=== PATIENT | female | born 1985 | race Caucasian/White ===

== ENCOUNTER → 2019-07-12 08:53 | Outpatient (BNVA) | payer SELFPAY | PROVIDERS: PCP Nurse Practitioner Family; Referring Provider Nurse Practitioner Family; Visit Provider Anesthesiology Pain Medicine | DX: M47.816 Spondylosis without myelopathy or radiculopathy, lumbar region (principal); M54.9 Dorsalgia, unspecified; M25.551 Pain in right hip; M25.552 Pain in left hip; M62.830 Muscle spasm of back | CPT/HCPCS: 99204 ==

== ENCOUNTER 2019-07-17 08:32 | Outpatient (RCR) | payer SELFPAY | END 2019-07-29 23:59 | disposition home or self-care (01) | LOC: SPT 08:32 | PROVIDERS: PCP Nurse Practitioner Family; Referring Provider Nurse Practitioner Family; Visit Provider Nurse Practitioner Family | DX: G89.29 Other chronic pain (principal); M54.9 Dorsalgia, unspecified | CPT/HCPCS: 97110; 97161; G0283 ==

== ENCOUNTER 2019-07-30 06:00 | Outpatient (RCR) | payer SELFPAY | END 2019-08-28 23:59 | disposition home or self-care (01) | LOC: SPT 06:00 | PROVIDERS: PCP Nurse Practitioner Family; Referring Provider Nurse Practitioner Family; Visit Provider Nurse Practitioner Family | DX: G89.29 Other chronic pain (principal); M54.9 Dorsalgia, unspecified | CPT/HCPCS: 97110 ==

== ENCOUNTER → 2019-08-02 10:47 | Outpatient (BNVA) | payer SELFPAY | PROVIDERS: PCP Nurse Practitioner Family; Referring Provider Nurse Practitioner Family; Visit Provider Specialist | DX: G04.90 Encephalitis and encephalomyelitis, unspecified (principal); R41.3 Other amnesia | CPT/HCPCS: 99205 ==

== ENCOUNTER → 2019-08-09 10:50 | Outpatient (BNVA) | payer SELFPAY | PROVIDERS: PCP Nurse Practitioner Family; Visit Provider Anesthesiology Pain Medicine | DX: M47.816 Spondylosis without myelopathy or radiculopathy, lumbar region (principal); M54.9 Dorsalgia, unspecified; M62.830 Muscle spasm of back | CPT/HCPCS: 99213 ==

== ENCOUNTER 2019-08-09 13:57 | Outpatient (CLI) | payer SELFPAY ==
--- NOTE | 2019-08-09 14:19 | XRR_ITS ---
PROCEDURE INFORMATION: Exam: XR Lumbosacral Spine, 2 or 3 Views Exam date and time: 08/09/2019 2:19 PM Age: 34 years old Clinical indication: Patient HX: Chronic low back pain; Additional info: Lumbar pain TECHNIQUE: Imaging protocol: XR of the lumbosacral spine, 2 or 3 views. COMPARISON: No relevant prior studies available. FINDINGS: Vertebrae: Moderate multilevel spine degenerative changes including degenerative disc disease, spondylosis and facet degenerative changes , most prominent at T12-L1, L1-L2 and L2-L3. Soft tissues: Unremarkable. XR/XR lumbar spine min 4V [id number] IMPRESSION: Moderate multilevel spine degenerative changes including degenerative disc disease, spondylosis and facet degenerative changes , most prominent at T12-L1, L1-L2 and L2-L3.
== END 2019-08-09 13:58 | disposition home or self-care (01) ==
LOC: RADWPI 14:02
PROVIDERS: Family Provider Nurse Practitioner Family; PCP Nurse Practitioner Family; Visit Provider Anesthesiology Pain Medicine
DX: G89.29 Other chronic pain (principal); M51.36 Other intervertebral disc degeneration, lumbar region; M47.816 Spondylosis without myelopathy or radiculopathy, lumbar region
CPT/HCPCS: 72114

== ENCOUNTER 2019-08-14 09:05 | Outpatient (CLI) | payer SELFPAY ==
--- NOTE | 2019-08-14 08:45 | MR_ITS ---
WS: [id number] MRI HEAD WITH CONTRAST TECHNIQUE: Sagittal T1, T2 axial, T2 axial FLAIR, axial susceptibility weighted imaging, axial diffus ion weighted images, and coronal T2 images were obtained. Pre and post-T1 axial and post T1 coronal i mages. ADC and FSPGR images. CLINICAL INFORMATION: AMNESIA COMPARISON: MRI November 22, 2018, October 31, 2018, November 04, 2017, July 11, 2017 FINDINGS: No significant change in the focal T2 hyperintense signal abnormality left parasagittal parietal whit e matter near the vertex. Associated T1 hyperintensity. This extends into the adjacent cortex without gadolinium enhancement. Differential considerations are unchanged. Prior area of chronic ischemia involving the left parietal temporal junction with T1 hyperintensity a s previously described consistent with laminar necrosis. Small focus of T2 hyperintensity in the righ t posterior frontal white matter is unchanged. No new lesions. No significant parenchymal volume loss . No evidence of restricted diffusion to suggest acute ischemia. Normal posterior fossa. Normal vascula r flow voids at the skull base. No extra-axial fluid collections. Paranasal sinuses and mastoid air c ells well aerated. Normal optic chiasm and pituitary infundibulum. MR/MR head wo/w con [id number] IMPRESSION: 1. Stable T2 hyperintense lesion in the left parasagittal parietal lobe. No en hancement. Differential considerations are unchanged include chronic focal isch emia versus vascular malformation such as cavernoma. Recommend 6 month follow-u p. 2. 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 3. Minimal small vessel changes unchanged.
== END 2019-08-14 09:06 | disposition home or self-care (01) ==
LOC: RADSHAW 09:07
PROVIDERS: PCP Nurse Practitioner Family; Visit Provider Specialist
DX: R41.3 Other amnesia (principal); I67.89 Other cerebrovascular disease; G93.9 Disorder of brain, unspecified
CPT/HCPCS: 70553; A9579

== ENCOUNTER → 2019-08-22 07:50 | Outpatient (BNVA) | payer SELFPAY | PROVIDERS: PCP Nurse Practitioner Family; Visit Provider Specialist | DX: G40.909 Epilepsy, unspecified, not intractable, without status epilepticus (principal); R29.90 Unspecified symptoms and signs involving the nervous system | CPT/HCPCS: 95816 ==

== ENCOUNTER → 2019-09-07 08:48 | Outpatient (BNVA) | payer SELFPAY | PROVIDERS: PCP Nurse Practitioner Family; Visit Provider Anesthesiology Pain Medicine | DX: M47.816 Spondylosis without myelopathy or radiculopathy, lumbar region (principal); M62.830 Muscle spasm of back; M54.9 Dorsalgia, unspecified | CPT/HCPCS: 99213 ==

== ENCOUNTER → 2019-09-12 10:50 | Outpatient (BNVA) | payer SELFPAY | PROVIDERS: PCP Nurse Practitioner Family; Referring Provider Specialist; Visit Provider Specialist | DX: G04.90 Encephalitis and encephalomyelitis, unspecified (principal); R29.90 Unspecified symptoms and signs involving the nervous system | CPT/HCPCS: G0463 ==

== ENCOUNTER → 2019-10-02 14:36 | Outpatient (BNVA) | payer OTHER, SELFPAY | PROVIDERS: PCP Nurse Practitioner Family; Visit Provider Nurse Practitioner Family | DX: Z20.828 Contact with and (suspected) exposure to other viral communicable diseases (principal); R53.83 Other fatigue; R06.00 Dyspnea, unspecified | CPT/HCPCS: 87635 ==

== ENCOUNTER 2022-09-28 19:50 | Emergency (ER) | payer MEDICAID, SELFPAY ==
--- NOTE | 2022-09-28 19:57 | XRR_ITS ---
PROCEDURE INFORMATION: Exam: XR Chest Exam date and time: 09/28/2022 8:02 PM Age: 37 years old Clinical indication: Pain; Chest pressure; Additional info: Cp TECHNIQUE: Imaging protocol: Radiologic exam of the chest. Views: 1 view. COMPARISON: MR angio neck w con* [id number] 10/11/2017 2:12 PM FINDINGS: Lungs: Unremarkable. No consolidation. Pleural spaces: Unremarkable. No pleural effusion. No pneumothorax. Heart/Mediastinum: Unremarkable. No cardiomegaly. Bones/joints: Unremarkable for age. XR/XR chest 1V portable [id number] IMPRESSION: Negative chest exam.
[2022-09-28 20:17] VITALS: BP 157/99; PULSE 70; RESP 16; TEMP 36.8; O2SAT 98; BMI 41.1
--- NOTE | 2022-09-28 20:19 | ECG_ITS ---
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 Measurements Intervals [place] Rate: 62 P: 48 DC: 132 QRS: 70 QRSD: 93 T: 37 QT: 388 QTc: 395 Interpretive Statements SINUS RHYTHM NONSPECIFIC ST & T-WAVE ABNORMALITY Compared to ECG 11/09/2018 16:31:02 No significant changes Electronically Signed On 09-29-2022 23:20:48 CDT by Susan Jalloh M.D. [email or web address].[id number]
[2022-09-28 20:31] LABS: Basophils # 0.1 10^3/uL (0.0-0.1); Basophils % 0.6 %; Eosinophils # 0.1 10^3/uL (0.0-0.8); Eosinophils % 0.9 %; Hematocrit 41.4 % (37.0-47.0); Lymphocytes # 3.1 10^3/uL (0.8-4.8); Lymphocytes % 34.8 %; Mean Corpuscular HGB Conc 31.4 g/dL (30.0-36.0); Mean Corpuscular Hemoglobin 27.8 pg (28.0-34.0); Mean Corpuscular Volume 88.5 fl (81-99); Mean Platelet Volume 10.3 fL (7.4-10.4); Monocytes # 0.7 10^3/uL (0.2-0.9); Monocytes % 7.8 %; Neutrophils # 4.97 10^3/uL (1.8-7.7); Neutrophils % 55.7 %; Nucleated Red Blood Cells % 0 %; Platelet Count 220 10^3/cmm (130-400); Red Blood Count 4.68 10^6/uL (4.1-5.3); Red Cell Distribution Width 14.5 % (12.1-15.1); White Blood Count 8.9 10^3/uL (4.0-10.0)
[2022-09-28 20:51] LABS: Alanine Aminotransferase 22 U/L (0-33); Albumin Level 4.1 g/dL (3.5-5.2); Alkaline Phosphatase 95 U/L (35-105); Anion Gap 14.6 (5-19); Aspartate Amino Transferase 15 U/L (0-32); Blood Urea Nitrogen 14 mg/dL (6-20); Calcium 9.1 mg/dL (8.5-10.5); Carbon Dioxide 24 mmol/L (22-29); Chloride 107 mmol/L (98-107); Globulin 2.5 g/dL (1.3-4.6); Glomerular Filtration Rate 93.2 mL/min (90-130); Glucose 115 mg/dL (65-115); Osmolality Calculated 295 mOsm/kg (285-295); Potassium 3.6 mmol/L (3.5-5.1); Sodium 142 mmol/L (136-145); Total Bilirubin 0.2 mg/dL (0.15-1.2); Total Protein 6.6 g/dL (6.6-8.7)
[2022-09-28 20:53] LABS: Troponin(5th) Baseline 6 ng/L (0-10)
--- NOTE | 2022-09-28 22:22 | ECG_ITS ---
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 Measurements Intervals [place] Rate: 59 P: 45 NV: 150 QRS: 66 QRSD: 90 T: 34 QT: 397 QTc: 396 Interpretive Statements SINUS BRADYCARDIA NONSPECIFIC T-WAVE ABNORMALITY WARNING: DATA QUALITY MAY AFFECT INTERPRETATION Compared to ECG 09/28/2022 20:19:40 Sinus rhythm no longer present T-wave abnormality still present Electronically Signed On 09-29-2022 23:30:10 CDT by Susan Jalloh M.D. [email or web address] centerRobert Applebaum MD[facility] company.DonorSearch/store/OM/[id number]
--- NOTE | 2022-09-28 22:53 | ED_ITS ---
HPI - Chest Pain General: Chief Complaint: Chest Pain Stated Complaint: chest pain Time Seen by Provider: 09/28/22 22:19 Source: patient Mode of arrival: ambulatory Limitations: no limitations History of Present Illness: 37-year-old female states that earlier today around 2 or 3 started having some chest pain that is sharp in nature also with back pain seem to radiate into her back. States over the last 2 hours the pain is resolved she is currently completely pain-free she denies any shortness of breath denies any nausea [place] she denies any abdominal pain. Denies any fevers. Associated symptoms: Deny abdominal pain, dyspnea, fever(s), nausea or vomiting Review of Systems Const: Denies: fever(s), chills, body aches or change in appetite Eyes: Denies: blurry vision or eye discomfort ENMT: Denies: throat pain or dental pain Card: Reports: chest pain Resp: Denies: dyspnea GI: Denies: abdominal pain, nausea, vomiting or diarrhea : Denies: dysuria Musc: Reports: back pain; Denies: neck pain Skin/Breast: Denies: rash Neuro: Denies: headache(s) PFSH ED PFSH: Family History Other Hypertension Denies family history of Diabetes CAD (coronary artery disease) Cancer Stroke Social History Smoking and tobacco status: current every day smoker Alcohol intake: current Alcohol intake frequency: holidays/special occasions only Substance/Drug Use: never Physical Exam Const: COMMON NORMALS: no acute distress, patient oriented x3 and healthy appearing HENMT: COMMON NORMALS: normocephalic and atraumatic HEAD & SCALP: normoc ephalic and atraumatic Eye: COMMON NORMALS: Equal, round and reactive pupils present and EOMs intact bilaterally PUPIL: Yes Equal, round and reactive pupils present Neck/C-Spine: COMMON NORMALS: full ROM and supple Chest: COMMONS NORMALS: normal inspection of the chest and normal palpation of entire chest wall Resp: COMMON NORMALS: normal respiratory effort, No retractions, No use of accessory muscles and clear to auscultation bilaterally AUSCULTATION: clear to auscultation bilaterally Cardio: COMMON NORMALS: regular rate, regular rhythm and No murmurs present (Cardio) RATE: regular rate RHYTHM: regular rhythm GI: COMMON NORMALS: Normal to inspection, nondistended, normoactive bowel sounds present, Soft to palpation, non-tender and no masses PALPATION: Yes Soft to palpation Extremity: COMMON NORMALS: normal to inspection and full ROM Neuro: COMMON NORMALS: patient oriented x3, moves all extremities and no focal motor deficits Psych: COMMON NORMALS: mental status grossly normal, Normal thought process present and cooperative THOUGHT PROCESS: Normal thought process present Skin: COMMON NORMALS: no rashes or lesions noted and no wounds GENERAL SKIN EXAM: no rashes or lesions noted Course Vital Signs: Vital signs: Vital Signs Temperature 98.2 F 09/28/22 20:17 Pulse Rate 60 09/28/22 23:49 Respiratory Rate 17 09/28/22 23:49 Blood Pressure 122/98 09/28/22 23:49 Pulse Oximetry 99 09/28/22 23:49 Oxygen Delivery Me thod Room Air 09/28/22 23:30 MDM - Chest Pain Medical Decision Making Patient presents chest pains atypical in nature her pain has since resolved. She is currently completely pain-free troponins x-ray EKG and blood work are all normal she is stable for discharge she is to follow-up with her PCP and return if worsening. Medical Records I reviewed the patient's medical records. Lab Data I reviewed the patient's lab results. 09/28/22 20:14 09/28/22 20:14 Radiology Impressions Chest X-Ray 09/28/22 19:57 IMPRESSION: Negative chest exam. Laboratory Results WBC 8.9 10^3/uL (4.0-10.0) 09/28/22 20:14 RBC 4.68 10^6/uL (4.1-5.3) 09/28/22 20:14 Hgb 13.0 g/dL (11.5-15.3) 09/28/22 20:14 Hct 41.4 % (37.0-47.0) 09/28/22 20:14 MCV 88.5 fl (81-99) 09/28/22 20:14 MCH 27.8 pg (28.0-34.0) L 09/28/22 20:14 MCHC 31.4 g/dL (30.0-36.0) 09/28/22 20:14 RDW 14.5 % (12.1-15.1) 09/28/22 20:14 Plt Count 220 10^3/cmm (130-400) 09/28/22 20:14 MPV 10.3 fL (7.4-10.4) 09/28/22 20:14 Neut % (Auto) 55.7 % 09/28/22 20:14 Lymph % (Auto) 34.8 % 09/28/22 20:14 [place] % (Auto) 7.8 % 09/28/22 20:14 Eos % (Auto) 0.9 % 09/28/22 20:14 Baso % (Auto) 0.6 % 09/28/22 20:14 Neut # (Auto) 4.97 10^3/uL (1.8-7.7) 09/28/22 20:14 Lymph # (Auto) 3.1 10^3/uL (0.8-4.8) 09/28/22 20:14 [place] # (Auto) 0.7 10^3/uL (0.2-0.9) 09/28/22 20:14 Eos # (Auto) 0.1 10^3/uL (0.0-0.8) 09/28/22 20:14 Baso # (Auto) 0.1 10^3/uL (0.0-0.1) 09/28/22 20:14 Nucleated RBC % (auto) 0 % 09/28/22 20:14 Nucleated RBCs # 0.0 /100WBC 09/28/22 20:14 Sodium 142 mmol/L (136-145) 09/28/22 20:14 Potassium 3.6 mmol/L (3.5-5.1) 09/28/22 20:14 Chloride 107 mmol/L (98-107) 09/28/22 20:14 Carbon Dioxide 24 mmol/L (22-29) 09/28/22 20:14 Anion Gap 14.6 (5-19) 09/28/22 20:14 BUN 14 mg/dL (6-20) 09/28/22 20:14 Creatinine 0.7 mg/dL (0.5-0.9) 09/28/22 20:14 GFR Calculation 93.2 mL/min (90-130) 09/28/22 20:14 Glucose 115 mg/dL (65-115) 09/28/22 20:14 Calculated Osmolality 295 mOsm/kg (285-295) 09/28/22 20:14 Calcium 9.1 mg/dL (8.5-10.5) 09/28/22 20:14 Total Bilirubin 0.2 mg/dL (0.15-1.2) 09/28/22 20:14 AST 15 U/L (0-32) 09/28/22 20:14 ALT 22 U/L (0-33) 09/28/22 20:14 Alkaline Phosphatase 95 U/L (35-105) 09/28/22 20:14 Troponin T Baseline 6 ng/L (0-10) 09/28/22 20:14 Troponin T 120 Minute 6.00 ng/L (0-10) 09/28/22 22:58 Delta Troponin T 0 ABS# (0-10) 09/28/22 22:58 Total Protein 6.6 g/dL (6.6-8.7) 09/28/22 20:14 Albumin 4.1 g/dL (3.5-5.2) 09/28/22 20:14 Globulin 2.5 g/dL (1.3-4.6) 09/28/22 20:14 EKG Data EKG 1: I personally reviewed and interpreted this EKG as follows: EKG interpretation date: 09/28/22 EKG interpretation time: 22:22 Interpretation: sinus susie hr [address] or twave abnormalities qrs 90 qtc 397 Discharge Plan Discharge Patient Disposition: Home Clinical Impression: Chest pain Condition: Stable Prescriptions: No Action tizanidine 4 mg tablet 4 mg PO BID PRN (Reason: muscle spasticity) Qty: 60 0RF escitalopram oxalate [Lexapro] 20 mg tablet 20 mg PO DAILY celecoxib [Celebrex] 200 mg capsule 200 mg PO DAILY MDD 2 PRN (Reason: pain) Qty: 30 3RF tizanidine 4 mg tablet 4 mg PO BID PRN (Reason: muscle spasticity) Qty: 60 3RF amoxicillin-pot clavulanate 875-125 mg tablet 1 tab PO BID 7 Days Qty: 14 0RF Discharge Orders: Discharge ED (Routine); Ordered 09/28/22 Ordered By: Suzy Barraza Referrals: Woo,Juan, WOOD ROOM SUPERVISOR [Primary Care Provider] - Discharge Diet: Advance as tolerated Discharge Activity: Resume usual activity Patient Instructions: Chest Pain (ED) Coding Level of Care Code ED Supervisor Cartography for Marquita Hoffmann
[2022-09-28 23:00] VITALS: BP 142/100; PULSE 60; RESP 18; O2SAT 96
[2022-09-28 23:30] VITALS: BP 139/92; PULSE 61; RESP 23; O2SAT 99
[2022-09-28 23:37] LABS: Troponin 5 2HR Delta 0 ABS# (0-10)
[2022-09-28 23:49] VITALS: BP 122/98; PULSE 60; RESP 17; O2SAT 99
== END 2022-09-28 23:51 | disposition home or self-care (01) ==
PROVIDERS: Emergency Provider Emergency Medicine; PCP Nurse Practitioner Family
DX: R07.9 Chest pain, unspecified (principal); F17.210 Nicotine dependence, cigarettes, uncomplicated
CPT/HCPCS: 36415; 71045; 80053; 84484; 85025; 93005; 99285

== ENCOUNTER → 2024-03-22 09:44 | Outpatient (BNVA) | payer MEDICAID, SELFPAY | PROVIDERS: PCP Nurse Practitioner Family; Visit Provider Nurse Practitioner Family | DX: H66.93 Otitis media, unspecified, bilateral (principal); R05.9 Cough, unspecified | CPT/HCPCS: 87400; 87426 ==

== ENCOUNTER 2024-08-30 15:57 | Emergency (ER) | payer MEDICAID, SELFPAY ==
--- OUTSIDE RECORDS SUMMARY | 2010-03-30 08:11 | XMS_ITS | Continuity of Care Document ---
Author Organization [facility] Address [address] [place] [address] Phone Care Team Providers Care Chief Nursing Executive Name Role Phone Unavailable Unavailable Unavailable Advance Directives Directive Yes / No Effective Date File Name No Information Encounters Encounter Description Practice Location Reason(s) For Visit Diagnoses Date Provider Providers Copied on Encounter [facility], [address], [place], [address], [place] tel:[phone] [facility] NWS No Information No Information Family History Family Member Type Diagnosis Age At Onset No Information Payers Payer name Insurance type Covered republican ID Authoriza tion(s) No Information Social History Type Description Quantity Date Captured Comments Sex Female Smoking Status No Information Chief Complaint And Reason For Visit No Information History Of Present Illness Encounter Date Complaint History Of Prese nt Illness No Information Instructions Date Instruction Additional Infor mation No Information Assessments Type Assessment Date No Information
--- OUTSIDE RECORDS SUMMARY | 2024-08-30 16:03 | XMS_ITS | Clinical Summary ---
Author Organization [facility] Address [address] Dickinsonn: Epic Prelude ADT NATASHA LEWIS [address] Care Team Providers Care Patch Machine Operator Name Role Phone Rodriguez Garcia MD Primary Care Provider [phone] Allergies No known active allergies Medications phentermine (ADIPEX P) 37.5 mg tabletIndication s:Weight gain,Morbid obesity with body mass index of 40.0-49.9 (CMS/HCC),Weight loss counseling, encounter for Take 1 Tablet (37.5 mg) by mouth daily before breakfast. 30 Tablet 0 09/04/2018 Active escitalopram oxalate (LEXAPRO) 10 mg tablet Take 10 mg by mouth daily. 09/04/2018 Active docosahexaenoic acid/epa (FISH OIL ORAL) Take by mouth. 01/25/2018 Active ascorbic acid (VITAMIN C ORAL) Take by mouth. 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 Gender Identity Not on file Sexual Orientation Not on file Last Filed Vital Signs Vital Sign Reading Time Taken Comments Blood Pressure 130/80 09/04/2018 8:59 AM CDT Pulse 76 09/04/2018 8:59 AM CDT Temperature 36.9 C (98.5 F) 09/04/2018 8:59 AM CDT Respiratory Rate 16 09/04/2018 8:59 AM CDT Oxygen Saturation - - Inhaled Oxygen Concentration - - Weight 123.4 kg (272 lb) 09/04/2018 8:59 AM CDT Height 170.2 cm (5' 7 ) 09/04/2018 8:59 AM CDT Body Mass Index 42.6 09/04/2018 8:59 AM CDT Plan of Treatment Health Maintenance Due Date Last Done Comments DTAP/TDAP/TD VACCINES (1 - Tdap) 07/31/2002 HEPATITIS B VACCINES (1 of 3 - 19+ 3-dose series) 07/31/2002 HPV/Cotest (21-29) 07/31/2004 CERVICAL CANCER SCREENING 07/31/2013 HPV/Cotest (30-65) 07/31/2013 PAP SMEAR 07/31/2013 BREAST CANCER SCREENING 2023 INFLUENZA VACCINE (#1) 2024 HPV VACCINES Aged Out No longer eligi ble based on patient's age to complete this topic Care Teams Patch Machine Operator Relationship Specialty Start Date End Date Rodriguez Garcia MD [address] [id number] PCP - General Family Practice 09/04/18
--- OUTSIDE RECORDS SUMMARY | 2024-08-30 16:03 | XMS_ITS | Clinical Summary ---
Author Organization [facility] Address [address] [place] [address] Care Team Providers Care Supervisor Commissary Production Name Role Phone Rodriguez Garcia MD Primary Care Provider [phone] Allergies No known active allergies Medications ascorbic acid (VITAMIN C ORAL) Take by mouth. Active omega-3 fatty acids (FISH OIL ORAL) Take by mouth. Active escitalopram oxalate (LEXAPRO) 10 mg tablet Take 10 mg by mouth daily. Active phentermine (ADIPEX P) 37.5 mg tabletIndication s:Weight gain,Morbid obesity with body mass index of 40.0-49.9 (CMS/HCC),Weight loss counseling, encounter for Take 1 Tablet (37.5 mg) by mouth daily before breakfast. 30 Tablet 09/04/2018 Active Active Problems Problem Noted Date Diagnosed [...] at Not on file Legal Sex Female 3:03 PM CDT Gender Identity Not on file Sexual Orientation Not on file Last Filed Vital Signs Vital Sign Reading Time Taken Comments Blood Pressure 130/80 09/04/2018 8:59 AM CDT Pulse 76 09/04/2018 8:59 AM CDT Temperature 36.9 C (98.5 F) 09/04/2018 8:59 AM CDT Respiratory Rate 16 09/04/2018 8:59 AM CDT Oxygen Saturation 97% 09/04/2018 8:59 AM CDT Inhaled Oxygen Concentration - - Weight 123.4 kg (272 lb) 09/04/2018 8:59 AM CDT Height 170.2 cm (5' 7 ) 09/04/2018 8:59 AM CDT Body Mass Index 42.6 09/04/2018 8:59 AM CDT Plan of Treatment Health Maintenance Due Date Last Done Comments DTAP/TDAP/TD VACCINES (1 - Tdap) 07/31/2002 HEPATITIS B VACCINES (1 of 3 - 19+ 3-dose series) 07/31/2002 Preventative Visit-Managed Medicaid 07/31/2002 HPV/Cotest (21-29) 07/31/2004 CERVICAL CANCER SCREENING 07/31/2013 HPV/Cotest (30-65) 07/31/2013 PAP SMEAR 07/31/2013 Pre-Diabetes and Diabetes Screening 09/04/2021 09/04/2018 BREAST CANCER SCREENING 2023 INFLUENZA VACCINE (#1) 2023 HPV VACCINES Aged Out No longer eligi ble based on patient's age to complete this topic Procedures Procedure Name Priority Date/Time Associated Diagnosis Comments HEMOGLOBIN A1C Routine 09/04/2018 9:37 AM CDT Weight gain Morbid obesity with body mass index of 40.0-49.9 ([facility]) from Last 3 Months or Most Recently Relevant to Health Maintenance Results * HEMOGLOBIN A1C (09/04/2018 9:37 AM CDT) HEMOGLOBIN A1C 5.2 See Comment % 09/04/2018 9:55 PM CDT [facility] EST. AVG GLUCOSE, A1C 103 mg/dL 09/04/2018 9:55 PM CDT [facility] Blood Collection / Unknown 09/04/2018 9:37 AM CDT 09/04/2018 8:08 PM CDT Narrative [facility] - 09/04/2018 9:55 PM CDT HGB A1C INTERPRETATION NORMAL: <5.7% PRE-DIABETES: 5.7 - 6.4% DIABETES: 6.5% OR GREATER Falsely low A1C measurements can occur when: 1. Anemia and/or hemolytic anemia is present. 2. Hemoglobin variants present. 3. Renal failure. 4. Transfusion of blood product in the last 120 days. We recommend ordering a fructosamine test([id number]) to more accurately assess glycemic status if any of the above conditions are present. Rodriguez Garcia MD CHEMISTRY ORDERABLES Latesha frey Result [facility] CLIA# [id number] [place] [address] from Last 3 Months or Most Recently Relevant to Health Maintenance Insurance [employer] [facility] Care Teams Supervisor Commissary Production Relationship Specialty Start Date End Date Rodriguez Garcia MD [address] [facility] [address] [place] [address] PCP - General Family Practice 09/04/18
--- NOTE | 2024-08-30 16:04 | ECG_ITS ---
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
[2024-08-30 16:05] VITALS: BP 148/100; PULSE 74; RESP 16; TEMP 36.7; O2SAT 96; BMI 40.7
--- NOTE | 2024-08-30 16:18 | XRR_ITS ---
PROCEDURE INFORMATION: Exam: XR Chest Exam date and time: 08/30/2024 4:33 PM Age: 39 years old Clinical indication: Pain; Chest pressure; Additional info: Chest pain TECHNIQUE: Imaging protocol: Radiologic exam of the chest. Views: 1 view. COMPARISON: CR XR chest 1V portable [id number] 09/28/2022 8:02 PM FINDINGS: Lungs: Unremarkable. No consolidation. Pleural spaces: Unremarkable. No pleural effusion. No pneumothorax. Heart/Mediastinum: Unremarkable. No cardiomegaly. Bones/joints: Unremarkable. XR/XR chest 1V portable [id number] IMPRESSION: No acute findings.
[2024-08-30 16:42] VITALS: BP 147/79; PULSE 71; RESP 13; O2SAT 95
--- NOTE | 2024-08-30 16:52 | W.ED.CHESTPA ---
Documented by User: Kris Perkins DO 08/31/24 06:23 HPI - Chest Pain General: Chief Complaint: Chest Pain Stated Complaint: high bp Time Seen by Provider: 08/30/24 16:13 History of Present Illness: 39-year-old female presents emergency room complaining of high blood pressure. Patient previous had a stroke in 2018. She also has some mild chest discomfort. No radiation of discomfort. She reports her blood pressure was up in the 160s over 110s at home much improved here she is not on any medication she has no known history of any heart disease. She is not diabetic. 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 Associated symptoms: Deny abdominal pain, dyspnea or fever(s) Related Data Home Medications ?Medication ?Instructions ?Recorded ?Confirmed escitalopram oxalate 20 mg tablet 20 mg PO DAILY 07/12/19 08/30/24 (Lexapro) melatonin 5 mg capsule 5 mg PO .HS PRN Sleep 05/05/23 08/30/24 tirzepatide (weight loss) 2.5 2.5 mg SUBCUT Q7D 08/30/24 08/30/24 mg/0.5 mL subcutaneous pen injector (Zepbound) Previous Rx's ?Medication ?Instructions ?Recorded cetirizine 10 mg capsule (Zyrtec) 10 mg PO DAILY PRN allergy 03/22/24 symptoms #14 caps amlodipine 2.5 mg tablet 2.5 mg PO DAILY #30 tabs 08/30/24 Allergies Allergy/AdvReac Type Severity Reaction Status Date / Time clindamycin Allergy ADR-Diarrhe Verified 08/30/24 16:08 a Review of Systems Const: Denies: fever(s) or chills Card: Denies: chest pain Resp: Denies: dyspnea GI: Denies: abdominal pain : Denies: dysuria, urinary frequency or urinary urgency Musc: Denies: neck pain or back pain Skin/Breast: Denies: rash PFSH ED PFSH: Family History Other Hypertension Denies family history of Diabetes CAD (coronary artery disease) Cancer Stroke Social History Smoking and tobacco/nicotine status: never used tobacco/nicotine Alcohol intake: current Alcohol intake frequency: holidays/special occasions only Substance/Drug Use: never Physical Exam Const: GENERAL APPEARANCE: cooperative and comfortable ORIENTATION/CONSCIOUSNESS: Yes awake, Yes oriented to person, Yes oriented to place and Yes oriented to time HENMT: COMMON NORMALS: normocephalic, atraumatic and hearing grossly normal bilaterally HEAD & SCALP: normocephalic and atraumatic Resp: COMMON NORMALS: normal respiratory effort, No retractions, No use of accessory muscles and clear to auscultation bilaterally AUSCULTATION: clear to auscultation bilaterally Cardio: COMMON NORMALS: regular rate, regular rhythm and No murmurs present (Cardio) RATE: regular rate RHYTHM: regular rhythm GI: COMMON NORMALS: Soft to palpation and No hepatosplenomegaly present AUSCULTATION: Yes normoactive bowel sounds PALPATION: Yes Soft to palpation, No Tenderness to palpation present (GI), No Guarding due to palpation present (GI) and Yes No hepatosplenomegaly present Extremity: COMMON NORMALS: normal to inspection, capillary refill normal, no clubbing, cyanosis or edema, no calf tenderness and no pedal edema Neuro: SENSORIUM/ORIENTATION: Yes oriented to person, Yes oriented to place and Yes oriented to time Skin: COMMON NORMALS: no rashes or lesions noted GENERAL SKIN EXAM: no rashes or lesions noted Course Vital Signs: Vital signs: Vital Signs Temperature 98.1 F 08/30/24 16:05 Pulse Rate 75 08/30/24 19:25 Respiratory Rate 18 08/30/24 19:25 Blood Pressure 147/111 08/30/24 19:25 Pulse Oximetry 98 08/30/24 19:25 Oxygen Delivery Me thod Room Air 08/30/24 16:05 MDM - Chest Pain Medical Decision Making 39-year-old female with a history of methamphetamine use and previous stroke. She is complaining of some mild chest pain she has been sober from her substance abuse for quite some time but still an underlying potential risk factor. Blood pressure at this time is stable no immediate intervention needed. Second troponin pending. Care signed out to Dr. Duke at change of shift. See final notes for diagnosis and disposition. Patient is refusing delta troponin. She is stating that she just wanted to get something for her blood pressure. Her blood pressure is mildly elevated here at 150/100. She states that normally her blood pressure runs 120s to 130s systolics. She states that her primary care physician sent her in here to be checked and get started on something for blood pressure and that she does not want to stay for a second troponin. Discussed with the patient that cardiac disease is still a possibility even with her negative first troponin. Patient is just wanting medication for blood pressure and be discharged home. I discussed with the patient that she needs to keep a close eye on her blood pressure and keep a blood pressure diary and follow-up with her primary care physician. Start patient on amlodipine 2.5 mg daily until she sees her primary care physician. Medical Records I reviewed the patient's medical records. Lab Data I reviewed the patient's lab results. 08/30/24 16:34 08/30/24 16:34 Radiology Impressions Chest X-Ray 08/30/24 16:18 IMPRESSION: No acute findings. Laboratory Results WBC 8.28 10^3/uL (3.29-11.43) 08/30/24 16:34 RBC 4.71 10^6/uL (3.85-5.65) 08/30/24 16:34 Hgb 13.70 g/dL (11.27-16.99) 08/30/24 16:34 Hct 41.4 % (36-47) 08/30/24 16:34 MCV 87.9 fl (85-98) 08/30/24 16:34 MCH 29.1 pg (27-33) 08/30/24 16:34 MCHC 33.1 g/dL (30-55) 08/30/24 16:34 RDW 14.1 % (12.1-15.1) 08/30/24 16:34 Plt Count 243 10^3/cmm (157-399) 08/30/24 16:34 MPV 9.6 fL (7.4-10.4) 08/30/24 16:34 Neut % (Auto) 68.1 % 08/30/24 16:34 Lymph % (Auto) 25.1 % 08/30/24 16:34 [place] % (Auto) 5.9 % 08/30/24 16:34 Eos % (Auto) 0.2 % 08/30/24 16:34 Baso % (Auto) 0.5 % 08/30/24 16:34 Neut # (Auto) 5.63 10^3/uL (1.8-7.7) 08/30/24 16:34 Lymph # (Auto) 2.1 10^3/uL (0.8-4.8) 08/30/24 16:34 [place] # (Auto) 0.5 10^3/uL (0.2-0.9) 08/30/24 16:34 Eos # (Auto) 0.0 10^3/uL (0.0-0.8) 08/30/24 16:34 Baso # (Auto) 0.0 10^3/uL (0.0-0.1) 08/30/24 16:34 Nucleated RBC % (auto) 0 % 08/30/24 16:34 Nucleated RBCs # 0.0 /100WBC 08/30/24 16:34 Sodium 140 mmol/L (136-145) 08/30/24 16:34 Potassium 3.6 mmol/L (3.5-5.1) 08/30/24 16:34 Chloride 103 mmol/L (98-107) 08/30/24 16:34 Carbon Dioxide 26 mmol/L (22-29) 08/30/24 16:34 Anion Gap 14.6 (5-19) 08/30/24 16:34 BUN 10 mg/dL (6-20) 08/30/24 16:34 Creatinine 0.7 mg/dL (0.5-0.9) 08/30/24 16:34 GFR Calculation 92.2 mL/min (90-130) 08/30/24 16:34 Glucose 94 mg/dL (65-115) 08/30/24 16:34 Calculated Osmolality 289 mOsm/kg (285-295) 08/30/24 16:34 Calcium 9.5 mg/dL (8.5-10.5) 08/30/24 16:34 Total Bilirubin 0.4 mg/dL (0.15-1.2) 08/30/24 16:34 AST 16 U/L (0-32) 08/30/24 16:34 ALT 22 U/L (0-33) 08/30/24 16:34 Alkaline Phosphatase 60 U/L (35-105) 08/30/24 16:34 Troponin T Baseline < 6 ng/L (0-10) 08/30/24 16:34 Total Protein 7.2 g/dL (6.6-8.7) 08/30/24 16:34 Albumin 4.5 g/dL (3.5-5.2) 08/30/24 16:34 Globulin 2.7 g/dL (1.3-4.6) 08/30/24 16:34 Discharge Plan Discharge Patient Disposition: Home Clinical Impression: Hypertension, Atypical chest pain Condition: Stable Prescriptions: New amlodipine 2.5 mg tablet 2.5 mg PO DAILY Qty: 30 0RF No Action escitalopram oxalate [Lexapro] 20 mg tablet 20 mg PO DAILY melatonin 5 mg capsule 5 mg PO .HS PRN (Reason: Sleep) Zyrtec 10 mg capsule 10 mg PO DAILY PRN (Reason: allergy symptoms) Qty: 14 0RF Zepbound 2.5 mg/0.5 mL pen injector 2.5 mg SUBCUT Q7D Discharge Orders: Discharge ED (Routine); Ordered 08/30/24 Ordered By: Flynn Duek Referrals: Zuleima Godoy DO [Primary Care Provider, TRAFFIC PERSONNEL SUPERVISOR] Discharge Diet: Low Salt Patient Instructions: Opioid Safety, Pain Management, Patient Portal & Cristy Instructions Activity Restrictions/Additional Instructions: Keep a blood pressure diary and follow-up with PCP. Print Language: Gabonese Coding Level of Care Code ED Manager Hi for Chg Fwd Documented by User: Flynn Duke MD 08/30/24 19:13 HPI - Chest Pain General: Chief Complaint: Chest Pain Stated Complaint: high bp Time Seen by Provider: 08/30/24 16:13 Related Data Home Medications ?Medication ?Instructions ?Recorded ?Confirmed escitalopram oxalate 20 mg tablet 20 mg PO DAILY 07/12/19 08/30/24 (Lexapro) melatonin 5 mg capsule 5 mg PO .HS PRN Sleep 05/05/23 08/30/24 tirzepatide (weight loss) 2.5 2.5 mg SUBCUT Q7D 08/30/24 08/30/24 mg/0.5 mL subcutaneous pen injector (Zepbound) Previous Rx's ?Medication ?Instructions ?Recorded cetirizine 10 mg capsule (Zyrtec) 10 mg PO DAILY PRN allergy 03/22/24 symptoms #14 caps amlodipine 2.5 mg tablet 2.5 mg PO DAILY #30 tabs 08/30/24 Allergies Allergy/AdvReac Type Severity Reaction Status Date / Time clindamycin Allergy ADR-Diarrhe Verified 08/30/24 16:08 a PFSH ED PFSH: Family History Other Hypertension Denies family history of Diabetes CAD (coronary artery disease) Cancer Stroke Social History Smoking and tobacco/nicotine status: never used tobacco/nicotine Alcohol intake: current Alcohol intake frequency: holidays/special occasions only Substance/Drug Use: never Course Vital Signs: Vital signs: Vital Signs Temperature 98.1 F 08/30/24 16:05 Pulse Rate 75 08/30/24 19:25 Respiratory Rate 18 08/30/24 19:25 Blood Pressure 147/111 08/30/24 19:25 Pulse Oximetry 98 08/30/24 19:25 Oxygen Delivery Me thod Room Air 08/30/24 16:05 MDM - Chest Pain Medical Decision Making Patient is refusing delta troponin. She is stating that she just wanted to get something for her blood pressure. Her blood pressure is mildly elevated here at 150/100. She states that normally her blood pressure runs 120s to 130s systolics. She states that her primary care physician sent her in here to be checked and get started on something for blood pressure and that she does not want to stay for a second troponin. Discussed with the patient that cardiac disease is still a possibility even with her negative first troponin. Patient is just wanting medication for blood pressure and be discharged home. I discussed with the patient that she needs to keep a close eye on her blood pressure and keep a blood pressure diary and follow-up with her primary care physician. Start patient on amlodipine 2.5 mg daily until she sees her primary care physician. Lab Data 08/30/24 16:34 08/30/24 16:34 Radiology Impressions Chest X-Ray 08/30/24 16:18 IMPRESSION: No acute findings. Laboratory Results WBC 8.28 10^3/uL (3.29-11.43) 08/30/24 16:34 RBC 4.71 10^6/uL (3.85-5.65) 08/30/24 16:34 Hgb 13.70 g/dL (11.27-16.99) 08/30/24 16:34 Hct 41.4 % (36-47) 08/30/24 16:34 MCV 87.9 fl (85-98) 08/30/24 16:34 MCH 29.1 pg (27-33) 08/30/24 16:34 MCHC 33.1 g/dL (30-55) 08/30/24 16:34 RDW 14.1 % (12.1-15.1) 08/30/24 16:34 Plt Count 243 10^3/cmm (157-399) 08/30/24 16:34 MPV 9.6 fL (7.4-10.4) 08/30/24 16:34 Neut % (Auto) 68.1 % 08/30/24 16:34 Lymph % (Auto) 25.1 % 08/30/24 16:34 [place] % (Auto) 5.9 % 08/30/24 16:34 Eos % (Auto) 0.2 % 08/30/24 16:34 Baso % (Auto) 0.5 % 08/30/24 16:34 Neut # (Auto) 5.63 10^3/uL (1.8-7.7) 08/30/24 16:34 Lymph # (Auto) 2.1 10^3/uL (0.8-4.8) 08/30/24 16:34 [place] # (Auto) 0.5 10^3/uL (0.2-0.9) 08/30/24 16:34 Eos # (Auto) 0.0 10^3/uL (0.0-0.8) 08/30/24 16:34 Baso # (Auto) 0.0 10^3/uL (0.0-0.1) 08/30/24 16:34 Nucleated RBC % (auto) 0 % 08/30/24 16:34 Nucleated RBCs # 0.0 /100WBC 08/30/24 16:34 Sodium 140 mmol/L (136-145) 08/30/24 16:34 Potassium 3.6 mmol/L (3.5-5.1) 08/30/24 16:34 Chloride 103 mmol/L (98-107) 08/30/24 16:34 Carbon Dioxide 26 mmol/L (22-29) 08/30/24 16:34 Anion Gap 14.6 (5-19) 08/30/24 16:34 BUN 10 mg/dL (6-20) 08/30/24 16:34 Creatinine 0.7 mg/dL (0.5-0.9) 08/30/24 16:34 GFR Calculation 92.2 mL/min (90-130) 08/30/24 16:34 Glucose 94 mg/dL (65-115) 08/30/24 16:34 Calculated Osmolality 289 mOsm/kg (285-295) 08/30/24 16:34 Calcium 9.5 mg/dL (8.5-10.5) 08/30/24 16:34 Total Bilirubin 0.4 mg/dL (0.15-1.2) 08/30/24 16:34 AST 16 U/L (0-32) 08/30/24 16:34 ALT 22 U/L (0-33) 08/30/24 16:34 Alkaline Phosphatase 60 U/L (35-105) 08/30/24 16:34 Troponin T Baseline < 6 ng/L (0-10) 08/30/24 16:34 Total Protein 7.2 g/dL (6.6-8.7) 08/30/24 16:34 Albumin 4.5 g/dL (3.5-5.2) 08/30/24 16:34 Globulin 2.7 g/dL (1.3-4.6) 08/30/24 16:34 All radiology interpretation(s) finalized by discharge Discharge Plan Discharge Patient Disposition: Home Clinical Impression: Hypertension, Atypical chest pain Condition: Stable Prescriptions: New amlodipine 2.5 mg tablet 2.5 mg PO DAILY Qty: 30 0RF No Action escitalopram oxalate [Lexapro] 20 mg tablet 20 mg PO DAILY melatonin 5 mg capsule 5 mg PO .HS PRN (Reason: Sleep) Zyrtec 10 mg capsule 10 mg PO DAILY PRN (Reason: allergy symptoms) Qty: 14 0RF Zepbound 2.5 mg/0.5 mL pen injector 2.5 mg SUBCUT Q7D Discharge Orders: Discharge ED (Routine); Ordered 08/30/24 Ordered By: Flynn Duke Referrals: Zuleima Godoy DO [Primary Care Provider, TRAFFIC PERSONNEL SUPERVISOR] Discharge Diet: Low Salt Patient Instructions: Opioid Safety, Pain Management, Patient Portal & Cristy Instructions Activity Restrictions/Additional Instructions: Keep a blood pressure diary and follow-up with PCP. Print Language: Gabonese Coding Level of Care Code ED Manager Hi for Marquita Hoffmann
[2024-08-30 16:57] LABS: Hematocrit 41.4 % (36-47); Hemoglobin 13.70 g/dL (11.27-16.99); Mean Corpuscular HGB Conc 33.1 g/dL (30-55); Mean Corpuscular Hemoglobin 29.1 pg (27-33); Mean Corpuscular Volume 87.9 fl (85-98); Nucleated Red Blood Cells % 0 %; Platelet Count 243 10^3/cmm (157-399); Red Blood Count 4.71 10^6/uL (3.85-5.65); White Blood Count 8.28 10^3/uL (3.29-11.43)
[2024-08-30 17:05] LABS: Alanine Aminotransferase 22 U/L (0-33); Albumin Level 4.5 g/dL (3.5-5.2); Alkaline Phosphatase 60 U/L (35-105); Anion Gap 14.6 (5-19); Aspartate Amino Transferase 16 U/L (0-32); Blood Urea Nitrogen 10 mg/dL (6-20); Calcium 9.5 mg/dL (8.5-10.5); Carbon Dioxide 26 mmol/L (22-29); Chloride 103 mmol/L (98-107); Creatinine Clr Calc Pharmacy 140.4731; Globulin 2.7 g/dL (1.3-4.6); Glucose 94 mg/dL (65-115); Osmolality Calculated 289 mOsm/kg (285-295); Potassium 3.6 mmol/L (3.5-5.1); Sodium 140 mmol/L (136-145); Total Protein 7.2 g/dL (6.6-8.7)
[2024-08-30 17:13] LABS: Troponin(5th) Baseline < 6 ng/L (0-10)
[2024-08-30 17:38] VITALS: BP 131/91; PULSE 76; RESP 21; O2SAT 98
[2024-08-30 18:03] VITALS: BP 146/92; PULSE 73; RESP 22; O2SAT 94
--- NOTE | 2024-08-30 18:18 | ECG_ITS ---
[employer] Test Date: 2024-08-30 Pat Name: Evangelina Pickens Department: Room: Gender: Female Certified Nurse Operating Room: : 1985 Requested By: Kris Claire Order Number: [id number] Reading MD: Measurements Intervals [place] Rate: 68 P: 39 VA: 136 QRS: 47 QRSD: 99 T: -2 QT: 386 QTc: 413 Interpretive Statements SINUS RHYTHM NONSPECIFIC ST & T-WAVE ABNORMALITY Compared to ECG 08/30/2024 16:04:33 No significant changes [email or web address]
[2024-08-30 18:30] VITALS: BP 142/99; PULSE 70; RESP 12; O2SAT 97
[2024-08-30 19:25] VITALS: BP 147/111; PULSE 75; RESP 18; O2SAT 98
== END 2024-08-30 19:26 | disposition home or self-care (01) ==
PROVIDERS: Family Medicine; Emergency Provider Emergency Medicine; PCP Family Medicine
DX: I10 Essential (primary) hypertension (principal); R07.89 Other chest pain
CPT/HCPCS: 71045; 80053; 84484; 85025; 93005; 93010; 99285; J9999